=== PATIENT | female | born 1945 | race African-American/Black ===

== ENCOUNTER 2025-10-13 14:56 | Inpatient (IN) | payer MEDICARE, MEDICAID ==
[~2025-10-13] VITALS: Ht 144.8 cm; Wt 74.6 kg
[2025-10-13] MEDS ORDERED: LORAZEPAM 2MG/ML UD SYRINGE ONE (15:01)
[2025-10-13 15:19] LABS: BASOPHILS % 0.5 % (0.0-2.0); EOSINOPHILS % 1.3 % (0.0-5.0); HEMATOCRIT. 37.2 % (36.0-48.0); HEMOGLOBIN. 11.9 g/dL (12.0-16.0); LYMPHOCYTES % 27.8 % (20.0-50.0); MEAN PLATELET VOLUME 8.6 fl (7.4-10.4); MONOCYTES % 5.5 % (2.0-8.0); NEUTROPHILS % 64.9 % (40.0-76.0); PLATELET 225 x1000/uL (130-400); RED BLOOD CELL COUNT 4.05 mill/uL (4.2-5.4); RED CELL DISTRIBUTION WIDTH 16.1 % (11.6-14.6)
[2025-10-13] MEDS: VECURONIUM BROMIDE 10 MG/VIAL IV ONE (15:23)
[2025-10-13] MEDS: LORAZEPAM 2MG/ML UD SYRINGE IV SCH (15:24)
[2025-10-13] MEDS: ETOMIDATE 2MG/ML 10ML VIAL IV ONE (15:24)
[2025-10-13] MEDS: PROPOFOL 10MG/ML 100ML 100 ML IV SCH (15:29)
[2025-10-13 15:32] LABS: CREATININE 0.8 mg/dL (0.6-1.0)
[2025-10-13 15:33] LABS: UREA NITROGEN BLOOD 6 mg/dL (9-23)
[2025-10-13 15:34] LABS: ASPARTATE AMINOTRANSFERASE 23 IU/L (<34); TROPONIN I HIGH SENSITIVITY 23 ng/L (3.0-34)
[2025-10-13 15:35] LABS: BILIRUBIN DIRECT 0.1 mg/dL (<=3.0); BILIRUBIN TOTAL 0.3 mg/dL (0.1-1.0); PROTEIN TOTAL 7.6 g/dL (6.0-8.3)
[2025-10-13 15:36] VITALS: PULSE 75; RESP 20; O2SAT 100
[2025-10-13 15:47] LABS: INR 1.2
[2025-10-13] MEDS: KCL 20MEQ/100ML PREMIX 100 ML IV SCH (16:25)
[2025-10-13] MEDS ORDERED: ACETAMINOPHEN 325MG TABLET PO PRN ×2 (17:30)
[2025-10-13] MEDS ORDERED: DOCUSATE SODIUM 100MG CAPSULE PO PRN (17:30)
[2025-10-13] MEDS ORDERED: GUAIFENESIN 200MG/10ML SUGAR FREE UDC PO PRN (17:30)
[2025-10-13] MEDS ORDERED: LORAZEPAM 0.5MG TABLET PO PRN (17:30)
[2025-10-13] MEDS ORDERED: ONDANSETRON HCL 4MG/2ML INJ IV PRN (17:30)
[2025-10-13] MEDS ORDERED: DEXTROSE 50% WATER 50ML SYRINGE IV PRN (17:45)
[2025-10-13] MEDS: POTASSIUM CHLORIDE 20MEQ/PACKET NG SCH (17:45)
[2025-10-13 18:03] LABS: TRIGLYCERIDE 144.0 mg/dL (0-150)
[2025-10-13 18:04] LABS: LDL CHOLESTEROL 148.0 mg/dL (5-100)
[2025-10-13 18:05] LABS: PHOSPHORUS 3.1 mg/dL (2.5-4.9)
[2025-10-13 18:08] VITALS: PULSE 76; RESP 20; O2SAT 100
[2025-10-13 18:08] LABS: T4 FREE 1.43 ng/dL (0.89-1.76)
[2025-10-13] MEDS ORDERED: ACETAMINOPHEN 650MG/20.3ML UDC NG PRN (18:45)
[2025-10-13] MEDS ORDERED: DOCUSATE SODIUM SUGAR FREE 100MG/10ML UDC GT PRN (18:45)
[2025-10-13 19:28] VITALS: PULSE 71; RESP 20; O2SAT 100
[2025-10-13] MEDS ORDERED: POTASSIUM CHLORIDE 20MEQ/PACKET NG SCH (20:00)
[2025-10-13 20:23] LABS: BG BASE EXCESS 4.3 mmol/L (-2.0-3.0); BG CARBOXYHEMOGLOBIN 1.1 % (0.5-1.5); BG DEOXYHEMOGLOBIN 0.7 % (0.0-5.0); BG FRACTION INSPIRED OXYGEN 50; BG HCO3 ACT 22.1 mmol/L (21.0-28.0); BG METHEMOGLOBIN 0.3 % (0.5-1.5); BG OXYGEN SATURATION 99.3 % (94.0-98.0); BG OXYHEMOGLOBIN 97.9 % (94.0-98.0); BG PCO2 18.9 mmHg (32.0-45.0); BG PEEP (cmH2O) 5.0 cmH2O; BG PH 7.685 (7.350-7.450); BG PO2 125.6 mmHg (83.0-108.0); BG SAMPLE SITE RIGHT RADIAL; BG TIDAL VOLUME(mL) 450.0 mL; BG TOTAL HEMOGLOBIN 14.7 g/dL (12.0-16.0); BG VENT MODE VENT - AC; BG VENT RATE 20.0 set
[2025-10-13 21:35] VITALS: PULSE 73; RESP 20; O2SAT 93
[2025-10-13] MEDS: BLOOD SUGAR DIAGNOSTIC STRIP TEST SCH (22:00)
[2025-10-13] MEDS: LACOSAMIDE 100MG/10ML ORAL SOLN NG SCH (22:06)
[2025-10-13 22:21] LABS: CLARITY URINE CLEAR (CLEAR); GLUCOSE URINE 1+ (NEGATIVE); KETONES URINE 1+ (NEGATIVE); LEUKOCYTE ESTERASE URINE NEGATIVE (NEGATIVE); NITRITE URINE NEGATIVE (NEGATIVE); OCCULT BLOOD URINE NEGATIVE (NEGATIVE); PH URINE 8.5 (4.5-8.0); PROTEIN URINE TRACE (NEGATIVE); SPECIFIC GRAVITY URINE 1.010 (1.005-1.030); UROBILINOGEN URINE 1.0 E.U./dL (0.2-1.0)
[2025-10-13 22:44] LABS: COLOR URINE STRAW (YELLOW)
[2025-10-13 22:46] LABS: BACTERIA URINE NONE SEEN; RBC URINE NONE SEEN /hpf (0-2); SQUAMOUS EPITHELIAL CELL URINE RARE /lpf (RARE/1+); WBC URINE 0-2 /hpf (0-2)
[2025-10-13 22:48] LABS: *AMPHETAMINES SCREEN URINE NEGATIVE (NEGATIVE); *BARBITURATES SCREEN URINE NEGATIVE (NEGATIVE); *BENZODIAZEPINES SCREEN URINE PRESUMPTIVE POSITIVE (NEGATIVE); *COCAINE SCREEN URINE NEGATIVE (NEGATIVE); CANNABINOID URINE SCREEN NEGATIVE (NEGATIVE); ECSTASY MDMA SCREEN URINE NEGATIVE (NEGATIVE); METHADONE URINE SCREEN NEGATIVE (NEGATIVE); OPIATES URINE SCREEN NEGATIVE (NEGATIVE); PHENCYCLIDINE URINE SCREEN NEGATIVE (NEGATIVE)
[2025-10-13 22:59] VITALS: PULSE 69; RESP 20; O2SAT 93
[2025-10-13] MEDS: MAGNESIUM 4 G PREMIX 100 ML IV NR (23:07)
[2025-10-13] MEDS: DEXT 5%/LACTATED RINGERS 1,000 ML IV SCH (23:07)
[2025-10-13] MEDS: CARVEDILOL 3.125 MG TABLET NG SCH (23:08)
[2025-10-13] MEDS: PIPERACILLIN/TAZO 3.375G/50ML IV SCH (23:20)
[2025-10-13] MEDS: ENOXAPARIN 80MG/0.8ML SYR SUBCUT SCH (23:21)
[2025-10-13] MEDS: PANTOPRAZOLE SODIUM 40 MG/VIAL IV SCH (23:22)
[2025-10-13 23:45] VITALS: BP 160/120; PULSE 74; RESP 15; TEMP 36.6; O2SAT 100
[2025-10-14] VITALS (95 sets, daily range): BP systolic 89–166; BP diastolic 60–120; PULSE 59–74; RESP 10–32; TEMP 36.5–36.8; O2SAT 97–100
[2025-10-14] MEDS: POTASSIUM CHLORIDE 20MEQ/PACKET NG NR (00:42)
[2025-10-14] MEDS: PIPERACILLIN/TAZO 3.375G/50ML 50 ML IV SCH (05:26)
[2025-10-14 05:52] LABS: TROPONIN I HIGH SENSITIVITY 34 ng/L (3.0-34)
[2025-10-14 05:52] LABS: BASOPHILS % 0.4 % (0.0-2.0); EOSINOPHILS % 0.7 % (0.0-5.0); HEMATOCRIT. 41.5 % (36.0-48.0); HEMOGLOBIN. 13.0 g/dL (12.0-16.0); LYMPHOCYTES % 18.1 % (20.0-50.0); MEAN PLATELET VOLUME 9.5 fl (7.4-10.4); MONOCYTES % 8.0 % (2.0-8.0); NEUTROPHILS % 72.8 % (40.0-76.0); PLATELET 168 x1000/uL (130-400); RED BLOOD CELL COUNT 4.39 mill/uL (4.2-5.4); RED CELL DISTRIBUTION WIDTH 16.5 % (11.6-14.6)
[2025-10-14] MEDS: LEVOTHYROXINE SODIUM 50MCG TABLET NG SCH (06:15)
[2025-10-14] MEDS: PHENYTOIN 100 MG/4 ML UDC NG SCH (06:15)
[2025-10-14 06:16] LABS: CREATININE 0.7 mg/dL (0.6-1.0); UREA NITROGEN BLOOD < 5 mg/dL (9-23)
[2025-10-14 06:18] LABS: PHOSPHORUS 1.3 mg/dL (2.5-4.9)
[2025-10-14] MEDS: CLONIDINE 0.1MG TABLET PO PRN (06:19)
[2025-10-14] MEDS: PROPOFOL 10MG/ML 100ML 100 ML IV PRN (06:21)
[2025-10-14] MEDS: IPRATROPIUM/ALBUTEROL 0.5-3(2.5)MG/3ML NEB HHN PRN (08:54)
[2025-10-14] MEDS: POTASSIUM CHLORIDE 20MEQ/PACKET PO SCH (08:57)
[2025-10-14 09:16] LABS: BG BASE EXCESS 4.5 mmol/L (-2.0-3.0); BG CARBOXYHEMOGLOBIN 0.6 % (0.5-1.5); BG DEOXYHEMOGLOBIN 0.6 % (0.0-5.0); BG FRACTION INSPIRED OXYGEN 40; BG HCO3 ACT 22.6 mmol/L (21.0-28.0); BG METHEMOGLOBIN 0.3 % (0.5-1.5); BG OXYGEN SATURATION 99.4 % (94.0-98.0); BG OXYHEMOGLOBIN 98.5 % (94.0-98.0); BG PCO2 19.3 mmHg (32.0-45.0); BG PEEP (cmH2O) 5.0 cmH2O; BG PH 7.686 (7.350-7.450); BG PO2 128.0 mmHg (83.0-108.0); BG SAMPLE SITE RIGHT RADIAL; BG TIDAL VOLUME(mL) 450.0 mL; BG TOTAL HEMOGLOBIN 13.5 g/dL (12.0-16.0); BG VENT MODE VENT - AC; BG VENT RATE 20.0 set
[2025-10-14] MEDS: SODIUM CHLORIDE 0.9% 500 ML IV ONE (10:13)
[2025-10-14 11:21] LABS: BG BASE EXCESS 1.0 mmol/L (-2.0-3.0); BG CARBOXYHEMOGLOBIN 1.1 % (0.5-1.5); BG DEOXYHEMOGLOBIN 0.4 % (0.0-5.0); BG FRACTION INSPIRED OXYGEN 40; BG HCO3 ACT 22.9 mmol/L (21.0-28.0); BG METHEMOGLOBIN 0.1 % (0.5-1.5); BG OXYGEN SATURATION 99.6 % (94.0-98.0); BG OXYHEMOGLOBIN 98.4 % (94.0-98.0); BG PCO2 28.8 mmHg (32.0-45.0); BG PEEP (cmH2O) 5.0 cmH2O; BG PH 7.518 (7.350-7.450); BG PO2 184.9 mmHg (83.0-108.0); BG SAMPLE SITE RIGHT RADIAL; BG TIDAL VOLUME(mL) 450.0 mL; BG TOTAL HEMOGLOBIN 12.9 g/dL (12.0-16.0); BG VENT MODE VENT - AC; BG VENT RATE 10.0 set
[2025-10-14] MEDS: POTASSIUM PHOSPHATE 30 MMOL in SODIUM CHLORIDE 0.9% 490 ML IV NR (11:57)
[2025-10-14 16:11] LABS: TROPONIN I HIGH SENSITIVITY 26 ng/L (3.0-34)
[2025-10-14] MEDS: LACOSAMIDE 100MG/10ML ORAL SOLN NG SCH (21:37)
[2025-10-15] VITALS (88 sets, daily range): BP systolic 85–175; BP diastolic 58–129; PULSE 62–113; RESP 12–33; TEMP 36.7–36.8; O2SAT 95–100
[2025-10-15 05:48] LABS: HEMATOCRIT. 42.5 % (36.0-48.0); HEMOGLOBIN. 13.4 g/dL (12.0-16.0); MEAN PLATELET VOLUME 9.3 fl (7.4-10.4); PLATELET 163 x1000/uL (130-400); RED BLOOD CELL COUNT 4.54 mill/uL (4.2-5.4); RED CELL DISTRIBUTION WIDTH 16.5 % (11.6-14.6)
[2025-10-15] MEDS: PROPOFOL 10MG/ML 100ML 100 ML IV PRN (05:50)
[2025-10-15 09:45] LABS: BG BASE EXCESS -10.1 mmol/L (-2.0-3.0); BG CARBOXYHEMOGLOBIN 1.3 % (0.5-1.5); BG DEOXYHEMOGLOBIN 6.8 % (0.0-5.0); BG FRACTION INSPIRED OXYGEN 30; BG HCO3 ACT 13.9 mmol/L (21.0-28.0); BG METHEMOGLOBIN 0.0 % (0.5-1.5); BG OXYGEN SATURATION 93.1 % (94.0-98.0); BG OXYHEMOGLOBIN 91.9 % (94.0-98.0); BG PCO2 24.3 mmHg (32.0-45.0); BG PEEP (cmH2O) 5.0 cmH2O; BG PH 7.374 (7.350-7.450); BG PO2 71.4 mmHg (83.0-108.0); BG SAMPLE SITE RIGHT RADIAL; BG TIDAL VOLUME(mL) 400.0 mL; BG TOTAL HEMOGLOBIN 8.8 g/dL (12.0-16.0); BG VENT MODE VENT - AC; BG VENT RATE 12.0 set
[2025-10-15 11:43] LABS: BASOPHILS % 0.3 % (0.0-2.0); EOSINOPHILS % 0.9 % (0.0-5.0); HEMATOCRIT. 36.2 % (36.0-48.0); HEMOGLOBIN. 11.4 g/dL (12.0-16.0); LYMPHOCYTES % 10.6 % (20.0-50.0); MEAN PLATELET VOLUME 9.8 fl (7.4-10.4); MONOCYTES % 8.1 % (2.0-8.0); NEUTROPHILS % 80.1 % (40.0-76.0); PLATELET 165 x1000/uL (130-400); RED BLOOD CELL COUNT 3.95 mill/uL (4.2-5.4); RED CELL DISTRIBUTION WIDTH 16.2 % (11.6-14.6)
[2025-10-15 11:59] LABS: CREATININE 0.7 mg/dL (0.6-1.0); TRIGLYCERIDE 166 mg/dL (0-150); UREA NITROGEN BLOOD < 5 mg/dL (9-23)
[2025-10-15 12:01] LABS: PHOSPHORUS 3.2 mg/dL (2.5-4.9)
[2025-10-15 12:14] LABS: BAND% 2.0 % (1.0-6.0); LYMPHOCYTES % MANUAL 13.0 % (20.0-60.0); MONOCYTES % MANUAL 10.0 % (2.0-8.0); NEUTROPHILS % MANUAL 75.0 % (45.0-75.0); PLATELET ESTIMATE NORMAL
[2025-10-15] MEDS: DEXMEDETOMIDINE 100 ML IV PRN (12:40)
[2025-10-15] MEDS: INSULIN LISPRO 100 UNITS/ML SUBCUT SCH (13:45)
[2025-10-15] MEDS ORDERED: LORAZEPAM 2MG/ML UD SYRINGE IV PRN (14:30)
[2025-10-15] MEDS: MIDAZOLAM HCL 2 MG/2 ML VIAL IV PRN (15:13)
[2025-10-15] MEDS: POTASSIUM CHLORIDE 20MEQ TABLET SR PO SCH (15:36)
[2025-10-15] MEDS: KCL 20MEQ/100ML PREMIX 100 ML IV SCH (15:36)
[2025-10-16] VITALS (75 sets, daily range): BP systolic 92–177; BP diastolic 60–134; PULSE 60–150; RESP 11–40; TEMP 36.6–38.3; O2SAT 96–100
[2025-10-16 05:19] LABS: PLATELET 172 x1000/uL (130-400); RED BLOOD CELL COUNT 3.82 mill/uL (4.2-5.4); RED CELL DISTRIBUTION WIDTH 16.1 % (11.6-14.6)
[2025-10-16 05:28] LABS: CREATININE 0.6 mg/dL (0.6-1.0); TRIGLYCERIDE 111 mg/dL (0-150); UREA NITROGEN BLOOD < 5 mg/dL (9-23)
[2025-10-16 05:30] LABS: PHOSPHORUS 2.9 mg/dL (2.5-4.9)
[2025-10-16] MEDS: MORPHINE SULFATE 2 MG/ML INJ (NOT FOR IM USE) IV PRN (06:21)
[2025-10-16] MEDS: POTASSIUM CHLORIDE 20MEQ/PACKET PO NR (07:58)
[2025-10-16] MEDS ORDERED: NALOXONE HCL 0.4MG/ML VIAL IV PRN (08:00)
[2025-10-16 09:20] LABS: BG BASE EXCESS -2.3 mmol/L (-2.0-3.0); BG CARBOXYHEMOGLOBIN 0.7 % (0.5-1.5); BG DEOXYHEMOGLOBIN 1.3 % (0.0-5.0); BG FRACTION INSPIRED OXYGEN 30; BG HCO3 ACT 20.8 mmol/L (21.0-28.0); BG METHEMOGLOBIN 0.3 % (0.5-1.5); BG OXYGEN SATURATION 98.7 % (94.0-98.0); BG OXYHEMOGLOBIN 97.7 % (94.0-98.0); BG PCO2 30.9 mmHg (32.0-45.0); BG PEEP (cmH2O) 5.0 cmH2O; BG PH 7.447 (7.350-7.450); BG PO2 128.6 mmHg (83.0-108.0); BG SAMPLE SITE LEFT RADIAL; BG TIDAL VOLUME(mL) 400.0 mL; BG TOTAL HEMOGLOBIN 12.0 g/dL (12.0-16.0); BG VENT MODE VENT - AC; BG VENT RATE 12.0 set
[2025-10-16] MEDS: DILTIAZEM HCL 60MG TABLET PO SCH (13:34)
[2025-10-16] MEDS: MIDAZOLAM HCL 2 MG/2 ML VIAL IV PRN ×2 (14:59→23:46)
[2025-10-16] MEDS: POTASSIUM CHLORIDE 20MEQ/PACKET NG SCH (19:28)
[2025-10-16] MEDS: ACETAMINOPHEN 650MG/20.3ML UDC GT PRN (20:36)
[2025-10-16] MEDS: CARVEDILOL 3.125 MG TABLET PO SCH (20:36)
[2025-10-16] MEDS: BLOOD SUGAR DIAGNOSTIC STRIP TEST SCH (20:59)
[2025-10-17] VITALS (91 sets, daily range): BP systolic 86–184; BP diastolic 54–120; PULSE 61–138; RESP 10–30; TEMP 36.3–37.3; O2SAT 94–100
[2025-10-17 07:42] LABS: PLATELET 172 x1000/uL (130-400); RED BLOOD CELL COUNT 3.61 mill/uL (4.2-5.4); RED CELL DISTRIBUTION WIDTH 15.7 % (11.6-14.6)
[2025-10-17 08:23] LABS: CREATININE 0.7 mg/dL (0.6-1.0); UREA NITROGEN BLOOD 6 mg/dL (9-23)
[2025-10-17 08:25] LABS: PHOSPHORUS 2.9 mg/dL (2.5-4.9)
[2025-10-17 10:25] LABS: BG BASE EXCESS -0.8 mmol/L (-2.0-3.0); BG CARBOXYHEMOGLOBIN 1.3 % (0.5-1.5); BG DEOXYHEMOGLOBIN 0.6 % (0.0-5.0); BG FRACTION INSPIRED OXYGEN 30; BG HCO3 ACT 23.1 mmol/L (21.0-28.0); BG METHEMOGLOBIN 0.1 % (0.5-1.5); BG OXYGEN SATURATION 99.4 % (94.0-98.0); BG OXYHEMOGLOBIN 98.0 % (94.0-98.0); BG PCO2 36.0 mmHg (32.0-45.0); BG PEEP (cmH2O) 5.0 cmH2O; BG PH 7.426 (7.350-7.450); BG PO2 149.2 mmHg (83.0-108.0); BG SAMPLE SITE RIGHT RADIAL; BG TIDAL VOLUME(mL) 400.0 mL; BG TOTAL HEMOGLOBIN 12.0 g/dL (12.0-16.0); BG VENT MODE VENT - SIMV; BG VENT RATE 10.0 set
[2025-10-17 12:37] LABS: BG BASE EXCESS 0.1 mmol/L (-2.0-3.0); BG CARBOXYHEMOGLOBIN 0.2 % (0.5-1.5); BG DEOXYHEMOGLOBIN 0.3 % (0.0-5.0); BG FRACTION INSPIRED OXYGEN 40; BG HCO3 ACT 23.9 mmol/L (21.0-28.0); BG METHEMOGLOBIN 0.3 % (0.5-1.5); BG OXYGEN SATURATION 99.7 % (94.0-98.0); BG OXYHEMOGLOBIN 99.2 % (94.0-98.0); BG PCO2 35.8 mmHg (32.0-45.0); BG PEEP (cmH2O) 5.0 cmH2O; BG PH 7.442 (7.350-7.450); BG PO2 186.8 mmHg (83.0-108.0); BG SAMPLE SITE RIGHT BRACHIAL; BG TOTAL HEMOGLOBIN 11.6 g/dL (12.0-16.0); BG VENT MODE VENT - CPAP
[2025-10-18] VITALS (86 sets, daily range): BP systolic 89–157; BP diastolic 51–99; PULSE 63–126; RESP 12–36; TEMP 36–36.7; O2SAT 98–100
[2025-10-18 05:30] LABS: PLATELET 170 x1000/uL (130-400); RED BLOOD CELL COUNT 3.43 mill/uL (4.2-5.4); RED CELL DISTRIBUTION WIDTH 16.1 % (11.6-14.6)
[2025-10-18 05:45] LABS: CREATININE 0.7 mg/dL (0.6-1.0)
[2025-10-18 05:46] LABS: UREA NITROGEN BLOOD 10 mg/dL (9-23)
[2025-10-18 05:48] LABS: PHOSPHORUS 2.8 mg/dL (2.5-4.9)
[2025-10-18 10:11] LABS: BG BASE EXCESS 1.2 mmol/L (-2.0-3.0); BG CARBOXYHEMOGLOBIN 0.9 % (0.5-1.5); BG DEOXYHEMOGLOBIN 0.3 % (0.0-5.0); BG FRACTION INSPIRED OXYGEN 40; BG HCO3 ACT 24.2 mmol/L (21.0-28.0); BG METHEMOGLOBIN 0.0 % (0.5-1.5); BG OXYGEN SATURATION 99.7 % (94.0-98.0); BG OXYHEMOGLOBIN 98.8 % (94.0-98.0); BG PCO2 32.8 mmHg (32.0-45.0); BG PEEP (cmH2O) 5.0 cmH2O; BG PH 7.486 (7.350-7.450); BG PO2 195.0 mmHg (83.0-108.0); BG SAMPLE SITE RIGHT RADIAL; BG TIDAL VOLUME(mL) 450.0 mL; BG TOTAL HEMOGLOBIN 10.5 g/dL (12.0-16.0); BG VENT MODE VENT - SIMV; BG VENT RATE 16.0 set
[2025-10-18] MEDS: IPRATROPIUM/ALBUTEROL 0.5-3(2.5)MG/3ML NEB HHN SCH (21:46)
[2025-10-19] VITALS (10 sets, daily range): BP systolic 110–135; BP diastolic 53–90; PULSE 72–105; RESP 18–20; TEMP 36.1–37.7; O2SAT 92–100
[2025-10-19 07:06] LABS: HEMATOCRIT. 33.3 % (36.0-48.0); HEMOGLOBIN. 10.6 g/dL (12.0-16.0); MEAN PLATELET VOLUME 9.5 fl (7.4-10.4); PLATELET 169 x1000/uL (130-400); RED BLOOD CELL COUNT 3.64 mill/uL (4.2-5.4); RED CELL DISTRIBUTION WIDTH 15.9 % (11.6-14.6)
[2025-10-19 07:40] LABS: CREATININE 0.7 mg/dL (0.6-1.0); UREA NITROGEN BLOOD 7 mg/dL (9-23)
[2025-10-19 07:42] LABS: PHOSPHORUS 3.6 mg/dL (2.5-4.9)
[2025-10-19] MEDS: POTASSIUM CHLORIDE 20MEQ TABLET SR PO SCH (09:24)
[2025-10-19 20:34] LABS: LYMPHOCYTES % MANUAL 11.0 % (20.0-60.0); MONOCYTES % MANUAL 12.0 % (2.0-8.0); NEUTROPHILS % MANUAL 77.0 % (45.0-75.0); PLATELET ESTIMATE NORMAL
[2025-10-20] VITALS (7 sets, daily range): BP systolic 121–150; BP diastolic 57–84; PULSE 68–80; RESP 18–22; TEMP 36.6–37.7; O2SAT 93–98
[2025-10-20 09:11] LABS: CREATININE 0.6 mg/dL (0.6-1.0)
[2025-10-20 09:12] LABS: UREA NITROGEN BLOOD 6 mg/dL (9-23)
[2025-10-20 09:21] LABS: PLATELET 180 x1000/uL (130-400); RED BLOOD CELL COUNT 3.14 mill/uL (4.2-5.4); RED CELL DISTRIBUTION WIDTH 15.9 % (11.6-14.6)
[2025-10-20] MEDS ORDERED: POTASSIUM CHLORIDE 20MEQ TABLET SR PO SCH (12:00)
[2025-10-20] MEDS: POTASSIUM CHLORIDE 20MEQ TABLET SR PO SCH ×2 (13:29→15:34)
[2025-10-20] MEDS ORDERED: LOSA100T33 PO (13:33)
[2025-10-20] MEDS ORDERED: EMPA10TA PO (13:33)
[2025-10-20] MEDS ORDERED: AMLO5TAB88 PO (13:33)
[2025-10-20] MEDS ORDERED: FURO20TA4 PO (13:33)
[2025-10-20] MEDS ORDERED: FLUT1BLS3 IH (13:33)
[2025-10-20] MEDS ORDERED: LEVO50TA8 PO (13:33)
[2025-10-20] MEDS ORDERED: CARV3.1242 PO (13:33)
[2025-10-20] MEDS ORDERED: ATOR-2 PO (13:33)
[2025-10-20] MEDS ORDERED: GABA-529 PO (13:33)
[2025-10-20] MEDS ORDERED: APIX5TAB PO (13:33)
[2025-10-20] MEDS ORDERED: POTA-202 MT (13:35)
[2025-10-20] MEDS ORDERED: LACO150T2 MT (13:35)
== END 2025-10-20 20:52 | disposition home health service (06) | DRG 100 ==
LOC: ER 14:56 → EDBD 14:56 → EDBEDREQ 15:04 → EDBEDREQTM 16:21 → ENRESERV 21:55 → MICUSO 22:56 → 7WST 10-19 00:24
PROVIDERS: ADMIT Hospitalist; ATTEND Hospitalist
PROC: 5A1955Z Respiratory Ventilation, Greater than 96 Consecutive Hours (ICD-10-PCS; principal; 2025-10-13)
PROC: 0BH17EZ Insertion of Endotracheal Airway into Trachea, Via Natural or Artificial Opening (ICD-10-PCS; 2025-10-13)
DX: G40.401 Other generalized epilepsy and epileptic syndromes, not intractable, with status epilepticus (principal); G82.50 Quadriplegia, unspecified; J69.0 Pneumonitis due to inhalation of food and vomit; J96.01 Acute respiratory failure with hypoxia; D63.8 Anemia in other chronic diseases classified elsewhere; R47.01 Aphasia; R13.10 Dysphagia, unspecified; E83.39 Other disorders of phosphorus metabolism; I48.91 Unspecified atrial fibrillation; Z79.01 Long term (current) use of anticoagulants; I69.351 Hemiplegia and hemiparesis following cerebral infarction affecting right dominant side; E03.9 Hypothyroidism, unspecified; I11.0 Hypertensive heart disease with heart failure; F03.90 Unspecified dementia, unspecified severity, without behavioral disturbance, psychotic disturbance, mood disturbance, and anxiety; E78.5 Hyperlipidemia, unspecified; E87.6 Hypokalemia; E83.42 Hypomagnesemia; F41.9 Anxiety disorder, unspecified; R47.1 Dysarthria and anarthria; Z74.01 Bed confinement status; Z79.84 Long term (current) use of oral hypoglycemic drugs; Z79.899 Other long term (current) drug therapy; Z88.8 Allergy status to other drugs, medicaments and biological substances; Z91.A48 Caregiver's other noncompliance with patient's medication regimen for other reason
CPT/HCPCS: 31500; 31720; 36415; 36600; 71045; 73600; 80048; 80061; 80076; 80305; 80320; 80339; 81003; 82375; 82550; 82805; 82962; 83036; 83605; 83735; 83880; 83930; 84100; 84145; 84439; 84443; 84478; 84484; 85025; 85027; 87070; 92610; 93005; 93970; 94002; 94003; 94070; 94640; 94664; 96365; 96366; 96375; 97162; 97166; 98960; 99291; A4606; J1650; J2060; J2250; J2270; J2470; J2543; J2704; J3475; J3480; J3490; J7040; G0480